=== PATIENT | female | born 1990 | race Caucasian/White ===

== ENCOUNTER 2020-01-26 10:18 | Emergency (ER) | payer OTHER ==
[~2020-01-26] VITALS: Ht 167.6 cm; Wt 71.7 kg
[2020-01-26 10:24] VITALS: BP 132/68
[2020-01-26 11:02] VITALS: BP 132/68
== END 2020-01-26 11:02 | disposition home or self-care (01) ==
LOC: MED 10:18
DX: R05 Cough (principal); M54.5 Low back pain; G89.29 Other chronic pain
CPT/HCPCS: 81002; 81025; 99283

== ENCOUNTER 2020-03-26 18:34 | Emergency (ER) | payer OTHER ==
[~2020-03-26] VITALS: Ht 167.6 cm; Wt 71.7 kg
[2020-03-26 18:47] VITALS: BP 141/81
--- NOTE | 2020-03-26 18:58 | NUR ---
C/'O PERSISTANT DRY COUGH DURING NIGHTS >2 MONTHS; PT REQUESTING REFILL OF PHENERGAN W KAITLININE DENIES SOB OR FEVER
--- NOTE | 2020-03-26 19:10 | NUR ---
REPORT GIVEN TO HAKEEM HUNT .
--- NOTE | 2020-03-26 19:12 | NUR ---
RECIEVED CHANGE OF SHIFT REPORT FROM ZAKIYA PALACIO. ASSUMED PT CARE THIS TIME.
--- NOTE | 2020-03-26 19:14 | NUR ---
DR TUCKER AT BEDSIDE EVALUATING PT.
== END 2020-03-26 19:21 | disposition home or self-care (01) ==
LOC: MED 18:34
DX: R05 Cough (principal); G43.909 Migraine, unspecified, not intractable, without status migrainosus
CPT/HCPCS: 99283

== ENCOUNTER 2021-01-28 02:10 | Emergency (ER) | payer OTHER ==
[~2021-01-28] VITALS: Ht 170.2 cm; Wt 93.4 kg
[2021-01-28 02:26] VITALS: BP 119/56
[2021-01-28] MEDS ORDERED: PROM118S5 PO (04:00)
[2021-01-28] MEDS ORDERED: BUTO10SP NS (04:00)
[2021-01-28 04:09] VITALS: BP 119/56
== END 2021-01-28 04:09 | disposition home or self-care (01) ==
LOC: MED 02:10
DX: G43.709 Chronic migraine without aura, not intractable, without status migrainosus (principal); R05 Cough
CPT/HCPCS: 99283

== ENCOUNTER 2021-10-20 01:55 | Emergency (ER) | payer OTHER ==
[~2021-10-20] VITALS: Ht 170.2 cm; Wt 72.6 kg
[~2021-10-20 01:55] MED LIST: BUTO10SP NS; PROM118S5 PO
[2021-10-20 02:00] VITALS: BP 143/88
--- NOTE | 2021-10-20 02:00 | NUR ---
TO BED AMBULATORY
--- NOTE | 2021-10-20 02:27 | NUR ---
RAD AT BEDSIDE
--- NOTE | 2021-10-20 02:30 | NUR ---
31 YO F BIB SELF WITH C/C OF COUGH AND CONGESTION X6 MONTHS. PT STATES COUGH IS NONPROD AND HAS TAKEN MULTIPLE DIFFERENT OTC COUGH MEDS WITH NO RELIEF. DENIES CHEST PAIN AND SOB. AFEBRILE. LUNG SOUNDS CLEAR THROUGHOUT FIELD. HX:ASTHMA RX:ALBUTEROL NKA
[2021-10-20] MEDS ORDERED: ROBAC PO (04:12)
[2021-10-20 04:26] VITALS: BP 143/88
--- NOTE | 2021-10-20 04:26 | NUR ---
Patient discharged with v/s stable. Written and verbal after care instructions given and explained. Patient alert, oriented and verbalized understanding of instructions. Ambulatory with steady gait. All questions addressed prior to discharge. ID band removed. Patient advised to follow up with PMD. Rx of CODEINE/GUAIFENESI given. Patient educated on indication of medication including possible reaction and side effects. Opportunity to ask questions provided and answered.
== END 2021-10-20 04:26 | disposition home or self-care (01) ==
LOC: MED 01:55
DX: R05.9 Cough, unspecified (principal); I10 Essential (primary) hypertension; J45.909 Unspecified asthma, uncomplicated; Z79.899 Other long term (current) drug therapy
CPT/HCPCS: 71045; 99283; Q0092

== ENCOUNTER 2022-06-07 12:51 | Emergency (ER) | payer OTHER ==
[~2022-06-07] VITALS: Ht 167.6 cm; Wt 84.8 kg
[~2022-06-07 12:51] MED LIST changes: +ROBAC PO
[2022-06-07 13:10] VITALS: BP 126/69
--- NOTE | 2022-06-07 13:37 | NUR ---
TAKEN TO XRAY
[2022-06-07] MEDS ORDERED: LORA10TA19 PO (14:11)
[2022-06-07] MEDS ORDERED: MONT10TA35 PO ×2 (14:11→14:20)
[2022-06-07] MEDS ORDERED: ALBU0.0912 IH (14:20)
--- NOTE | 2022-06-07 14:28 | NUR ---
CALLED NAME IN LOBBY, NO ANSWER
[2022-06-07 14:50] VITALS: BP 126/69
--- NOTE | 2022-06-07 14:57 | NUR ---
32 Y/O FEMALE C/O PRODUCTIVE COUGH X 5 MONTHS, SATURATION AT 99% RA. ALLERGY: CIPRO PMH: ASTHMA, MIGRAINES
--- NOTE | 2022-06-07 15:01 | NUR ---
pt left without dx paperwork rx of albuterol, loratadine, montelukast (sent)
== END 2022-06-07 15:01 | disposition home or self-care (01) ==
LOC: MED 12:51
DX: R05.3 Chronic cough (principal); J45.909 Unspecified asthma, uncomplicated; Z88.1 Allergy status to other antibiotic agents
CPT/HCPCS: 71045; 99283